=== PATIENT | female | born 1965 | race Caucasian/White ===

== ENCOUNTER 2019-02-20 20:54 | Emergency (ER) | payer BC ==
--- NOTE | 2019-02-20 21:09 | ER Document Report ---
ED Medical Screen (RME) - General Chief Complaint: Breathing Difficulty Stated Complaint: TROUBLE BREATHING Time Seen by Provider: 02/20/19 21:08 - [facility] Notes: 02/20/19 21:08 Patient is a 53-year-old female no significant past medical history who presents complaining of having lower substernal/epigastric pain that lasted for 30 minutes and was described as sharp and radiated around to her back and then resolved leaving her fatigued and "wiped." Patient states that the pain was worse when she would push in the area and she did have some shortness of breath at that time. No recent illness. Denies any prolonged immobilization, distance travel, recent surgery/trauma, personal cancer history, hormone use, smoking, or previous DVT/PE. Denies DOWLING, fever, neck pain, URI, n/v/d, dysuria, back pain, or rash. I have treated and performed a rapid initial assessment of this patient. A comprehensive ED assessment and evaluation of the patient, analysis of test results and completion of medical decision making process will be conducted by additional ED providers. PHYSICAL EXAMINATION: GENERAL: Well-appearing, well-nourished and in no acute distress. A&Ox4. Answers questions appropriately. LUNGS: Breath sounds clear to auscultation bilaterally and equal. No wheezes rales or rhonchi. HEART: Regular rate and rhythm without murmurs, rubs, gallops. Abdomen: Limited exam in triage, grossly nontender. Soft. Extremities: Trace pitting edema bilaterally. Cony negative bilaterally. No lower extremity asymmetry. NEUROLOGICAL: Normal speech, normal gait. PSYCH: Normal mood, normal affect.
--- NOTE | 2019-02-20 22:14 | RADIOLOGY REPORT (SQ) ---
EXAM DESCRIPTION: XR CHEST 1 VIEW COMPLETED DATE/TME: 02/20/2019 21:10 CLINICAL HISTORY: 53 years, Female, CP/epigastric pain COMPARISON: None. NUMBER OF VIEWS: 1 TECHNIQUE: Portable chest LIMITATIONS: None. FINDINGS: Heart size normal. Lungs clear. No pneumothorax IMPRESSION: Negative chest copyright 2010 [employer]- All Rights Reserved
[2019-02-20 22:46] LABS: ABSOLUTE BASOPHILS # (AUTO) 0.1 10^3/uL (0.0-0.2); ABSOLUTE EOSINOPHILS # (AUTO) 0.2 10^3/uL (0.0-0.6); ABSOLUTE LYMPHOCYTES (AUTO) 2.2 10^3/uL (0.5-4.7); ABSOLUTE MONOCYTES (AUTO) 0.8 10^3/uL (0.1-1.4); ABSOLUTE NEUT (AUTO) 6.7 10^3/uL (1.7-8.2); BASOPHILS % (AUTO) 0.6 % (0-2); EOSINOPHILS % (AUTO) 1.6 % (0-6); HEMATOCRIT 38.3 % (36.0-47.0); HEMOGLOBIN 13.1 g/dL (12.0-15.5); LYMPHOCYTES % (AUTO) 22.5 % (13-45); MEAN CORPUSCULAR HEMOGLOBIN 29.2 pg (27.0-33.4); MEAN CORPUSCULAR HGB CONC 34.3 g/dL (32.0-36.0); MEAN CORPUSCULAR VOLUME 85 fl (80-97); MONOCYTES % (AUTO) 7.9 % (3-13); PLATELET COUNT 233 10^3/uL (150-450); RED CELL DISTRIBUTION WIDTH 13.7 % (11.5-14.0); SEGMENTED NEUTROPHILS % (AUTO) 67.4 % (42-78); TOTAL CELLS COUNTED % (AUTO) 100 %
--- NOTE | 2019-02-20 22:51 | ER Document Report ---
ED General - General Mode of Arrival: Ambulatory Information source: Patient TRAVEL OUTSIDE OF THE [place] IN LAST 30 DAYS: No - HPI Onset: This evening Onset/Duration: Gone Quality of pain: Other - Clearance Severity: None - No pain at this time but it was a level 5 at the time of the pain Pain Level: Denies Associated symptoms: Chest pain - Epigastric, Shortness of breath, Other - States she was diaphoretic. denies: Nausea, Vomiting Exacerbated by: Supine, Walking, Other - Palpation Relieved by: Denies Similar symptoms previously: No Recently seen / treated by doctor: Yes - Related Data Home Medications: contrava <JAZZ RODRIGUEZ - Last Filed: 02/21/19 00:35> <ANSHUL HUANG - Last Filed: 02/21/19 02:12> - General Chief Complaint: Chest Pain Stated Complaint: TROUBLE BREATHING Time Seen by Provider: 02/20/19 21:08 Primary Care Provider: LENI HUANG MD [ACTIVE STAFF] - Follow up in 3-5 days DOE MUÑOZ MD [EMERITUS] - Follow up in 1 week Notes: 53-year-old female presented to ED for complaint of substernal/epigastric pain started around 8 PM. She states she had spaghetti and then within a half an hour lay down took a nap and when she woke up she had this tense pain in her e pigastric area that went through to her back. She states it did not go away for at least 30 minutes so she decided that she was coming to the hospital to have it evaluated. She states on the way here the pain was relieved. She states she was short of breath at the time of the pain. Pulse was 98 at the time of the pain she states she is not had any long distance travel any recent surgeries traumas history of cancer not smoke and has not had any previous DVTs or PEs. Have any cardiac history either. States she does not have any family history of cardiac problems. She does have a history of infrequent reflux. She did have an endoscopy about a year and a half ago that was negative. 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 Lives with: Family Family History: Reviewed & Not Pertinent Patient has suicidal ideation: No Patient has homicidal ideation: No - Past Medical History Cardiac Medical History: Reports: None Pulmonary Medical History: Reports: Hx Sleep Apnea EENT Medical History: Reports: None Neurological Medical History: Reports: Hx Migraine Endocrine Medical History: Reports: None Renal/ Medical History: Reports: None Malignancy Medical History: Reports: None GI Medical History: Reports: Hx Gastroesophageal Reflux Disease, Hx Colonoscopy, Hx Endoscopy Musculoskeletal Medical History: Reports None Skin Medical History: Reports None Psychiatric Medical History: Reports: Hx Depression Traumatic Medical History: Reports: None Infectious Medical History: Reports: None Past Surgical History: Reports: Hx Gynecologic Surgery - Uterine ablation, Hx Tubal Ligation - Immunizations Immunizations up to date: No Hx Diphtheria, Pertussis, Tetanus Vaccination: No History of Influenza Vaccine for 12/2018 - 05/2019 Season: Yes <JAZZ RODRIGUEZ - Last Filed: 02/21/19 00:35> Review of Systems - Review of Systems Constitutional: No symptoms reported EENT: No symptoms reported Cardiovascular: Chest pain Respiratory: Short of breath Gastrointestinal: No symptoms reported Genitourinary: No symptoms reported Female Genitourinary: No symptoms reported Musculoskeletal: No symptoms reported Skin: No symptoms reported Hematologic/Lymphatic: No symptoms reported Neurological/Psychological: Headaches -: Yes All other systems reviewed and negative <JAZZ RODRIGUEZ - Last Filed: 02/21/19 00:35> Physical Exam - Vital signs Interpretation: Normal - General General appearance: Appears well, Alert - HEENT Head: Normocephalic, Atraumatic Eyes: Normal Pupils: PERRL - Respiratory Respiratory status: No respiratory distress Chest status: Nontender Breath sounds: Normal Chest palpation: Normal - Cardiovascular Rhythm: Regular Heart sounds: Normal auscultation Murmur: No - Abdominal Inspection: Normal Distension: No distension Bowel sounds: Hyperactive Tenderness: Nontender Organomegaly: No organomegaly - Back Back: Normal, Nontender - Extremities General upper extremity: Normal inspection, Nontender, Normal color, Normal ROM, Normal temperature General lower extremity: Normal inspection, Nontender, Normal color, Normal ROM, Normal temperature, Normal weight bearing. No: Cony's sign - Neurological Neuro grossly intact: Yes Cognition: Normal Orientation: AAOx4 Carmelina Coma Scale Eye Opening: Spontaneous Selah Coma Scale Verbal: Oriented Sel[place] Coma Scale Motor: Obeys Commands Selah Coma Scale Total: 15 Speech: Normal Motor strength normal: LUE, RUE, LLE, RLE Sensory: Normal - Psychological Associated symptoms: Normal affect, Normal mood - Skin Skin Temperature: Warm Skin Moisture: Dry Skin Color: Normal <JAZZ RODRIGUEZ - Last Filed: 02/21/19 00:35> - Vital signs Vitals: Temp Pulse Resp BP Pulse Ox 97.8 F 92 18 151/77 H 98 02/20/19 21:09 02/20/19 21:09 02/20/19 21:09 02/20/19 21:09 02/20/19 21:09 Course - Laboratory Result Diagrams: 02/20/19 22:20 02/20/19 22:20 - Diagnostic Test Radiology reviewed: Image reviewed, Reports reviewed <JAZZ RODRIGUEZ - Last Filed: 02/21/19 00:35> - Laboratory Result Diagrams: 02/20/19 22:20 02/20/19 22:20 <ANSHUL HUANG - Last Filed: 02/21/19 02:12> - Re-evaluation Re-evalutation: 02/21/19 00:35 Patient is awaiting second troponin. Patient is pain-free and has been pain- free since my first exam. Patient is aware she is waiting for the second troponin and if she is still pain-free she will be charged home but if she has any elevation in the troponin or any chest pain she will be getting admitted. Patient has verbalized understanding with this plan. I have given report to Judson WELDON (JAZZ RODRIGUEZ) 02/21/19 02:12 Second troponin is negative. Discussed results with pt and pt's . Pt continues to remain chest pain free. Pt discharged home with return precautions. 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 All questions/concerns addressed prior to discharge. (ANSHUL HUANG) - Vital Signs Vital signs: Temp Pulse Resp BP Pulse Ox 97.8 F 92 16 137/82 H 97 02/20/19 21:09 02/20/19 21:09 02/21/19 01:01 02/21/19 01:01 02/21/19 01:01 Discharge <JAZZ RODRIGUEZ - Last Filed: 02/21/19 00:35> <ANSHUL HUANG - Last Filed: 02/21/19 02:12> - Discharge Clinical Impression: Chest pain Qualifiers: Chest pain type: unspecified Qualified Code(s): R07.9 - Chest pain, unspecified Condition: Stable Disposition: HOME, SELF-CARE Instructions: Chest Pain of Unclear Cause (OM) Additional Instructions: You were seen today for chest pain. The exact cause of your pain is unclear. However, based on your cardiac enzyme testing, chest x-ray, and EKG it does not appear that it is from an immediately life-threatening cause at this time. Although your testing here is normal is critical that you follow-up with your primary care physician for continued evaluation of this chest pain and possible stress testing. I recommended you see your physician within the next 24-48 hours to be evaluated for consideration of a stress test. Please return to emergency department immediately if you have worsening of your chest pain, shortness of breath, vomiting, become unable to exert yourself due to pain or difficulty breathing, you pass out, or have any pain that radiates into your arms, jaw, or back. Please also return if you have any additional symptoms that are concerning to you. Referrals: LENI HUANG MD [ACTIVE STAFF] - Follow up in 3-5 days DOE MUÑOZ MD [EMERITUS] - Follow up in 1 week
[2019-02-20] MEDS ORDERED: ASPIRIN 81 MG TABLET, CHEWABLE PO ONE (22:55)
[2019-02-20] MEDS ORDERED: ACETAMINOPHEN 325 MG TABLET PO ONE (22:55)
[2019-02-20 23:02] LABS: ALBUMIN 3.9 g/dL (3.5-5.0); ALKALINE PHOSPHATASE 101 U/L (38-126); ANION GAP 10 (5-19); ASPARTATE AMINO TRANSFERASE 36 U/L (14-36); BILIRUBIN,DIRECT 0.2 mg/dL (0.0-0.4); BILIRUBIN,TOTAL 0.4 mg/dL (0.2-1.3); BLOOD UREA NITROGEN 13 mg/dL (7-20); CALCIUM 9.4 mg/dL (8.4-10.2); CARBON DIOXIDE 27 mmol/L (22-30); CHLORIDE 101 mmol/L (98-107); GLUCOSE 109 mg/dL (75-110); POTASSIUM 4.1 mmol/L (3.6-5.0); TOTAL PROTEIN 6.9 g/dL (6.3-8.2)
[2019-02-21 02:34] VITALS: BP 136/74
--- NOTE | 2019-02-21 06:51 | EKG REPORT ---
SEVERITY:- NORMAL ECG - SINUS RHYTHM : Confirmed by: Titus Barbosa MD 21-Feb-2019 06:50:24
== END 2019-02-21 02:30 | disposition home or self-care (01) ==
LOC: EDBD → ER 20:54
DX: R07.2 Precordial pain (principal); R10.13 Epigastric pain; R06.02 Shortness of breath; R51 Headache; Z87.19 Personal history of other diseases of the digestive system; Z91.040 Latex allergy status
CPT/HCPCS: 36415; 71045; 80053; 83690; 84484; 85025; 93005; 93010; 99285

== ENCOUNTER → 2019-10-24 | Outpatient (CLI) | payer OTHER, BC ==
[2019-10-24 10:27] LABS: ALBUMIN 3.9 g/dL (3.5-5.0); ALKALINE PHOSPHATASE 93 U/L (38-126); ASPARTATE AMINO TRANSFERASE 26 U/L (14-36); BILIRUBIN,TOTAL 0.5 mg/dL (0.2-1.3); BLOOD UREA NITROGEN 11 mg/dL (7-20); CALCIUM 8.9 mg/dL (8.4-10.2); CARBON DIOXIDE 29 mmol/L (22-30); GLUCOSE 94 mg/dL (75-110); POTASSIUM 4.4 mmol/L (3.6-5.0); TOTAL PROTEIN 6.8 g/dL (6.3-8.2)
[2019-10-24 10:32] LABS: CHLORIDE 102 mmol/L (98-107)
[2019-10-24 10:36] LABS: ANION GAP 5 (5-19)
== END ==
LOC: OD 08:22
PROVIDERS: ATTEND Surgery
DX: K83.8 Other specified diseases of biliary tract (principal); K80.20 Calculus of gallbladder without cholecystitis without obstruction
CPT/HCPCS: 36415; 80053

== ENCOUNTER 2019-11-28 11:58 | Day surgery (SDC) | payer OTHER, BC ==
[2019-11-28] MEDS ORDERED: GLUCAGON,HUMAN RECOMB 1 MG INJ ONE (13:02)
[2019-11-28] MEDS ORDERED: EPINEPHRINE INJ 1 MG/10 ML DISP.SYRIN ONE (13:02)
[2019-11-28] MEDS ORDERED: LIDOCAINE 2% INJ-PF (20 MG/ML) 10 ML AMPUL ONE (13:33)
[2019-11-28] MEDS ORDERED: FENTANYL CITRATE INJ/PF 100 MCG/2 ML AMPUL ONE (13:33)
[2019-11-28] MEDS ORDERED: MIDAZOLAM 2 MG/2 ML INJ ONE (13:34)
[2019-11-28] MEDS ORDERED: PROPOFOL INJ 200 MG/20 ML VIAL IV ONE (13:34)
[2019-11-28] MEDS ORDERED: ONDANSETRON HCL INJ/PF 4 MG/2 ML SDV ONE (13:34)
[2019-11-28] MEDS ORDERED: DIPHENHYDRAMINE HCL 50 MG/ML VIAL IV PRN (14:45)
[2019-11-28] MEDS ORDERED: MEPERIDINE HCL/PF INJ 25 MG/1 ML DISP.SYRIN IV PRN (14:45)
[2019-11-28] MEDS ORDERED: PROMETHAZINE HCL INJ 25 MG/1 ML VIAL IV PRN ×2 (14:45)
[2019-11-28] MEDS ORDERED: FENTANYL CITRATE INJ/PF 100 MCG/2 ML AMPUL IV PRN ×3 (14:45)
--- NOTE | 2019-11-28 15:13 | Operative Report ---
Operative Report DATE OF SURGERY: 11/28/19 Operative Report: Pre-op diagnosis: Recurrent abdominal pain, gallstones and dilated biliary ducts Post-op diagnosis: 1. Common bile duct sludge 2. Normal pancreatic duct Surgery: ERCP with sphincterotomy and balloon sludge extraction Medications: As per anesthesia Tissue removed: None Procedure: After informed consent obtained from patient, patient was placed under general anesthesia. The ERCP endoscope was then inserted into the esophagus blindly and advanced into the stomach. The duodenum was entered and the ampulla was identified with a very small opening. Using the triple-lumen sphincterotomy catheter the common bile duct was freely cannulated. A cholan giogram was obtained . A good sized sphincterotomy was then performed using the endocut mode. The catheter was removed over the guidewire before a 12-15 mm balloon catheter was inserted. The balloon was inflated to 12 mm in the proximal common bile duct and pulled down the duct. The duct was swept two more times. A balloon occlusion cholangiogram was normal. Patient tolerated procedure well. Findings Common bile duct: Small amount of sludge was extracted Intrahepatic ducts: Normal Pancreatic duct: Partial pancreatogram was normal Plan: Refer for cholecystectomy OPERATION: .
--- NOTE | 2019-11-28 15:40 | RADIOLOGY REPORT (SQ) ---
EXAM DESCRIPTION: ENDO CATH BILI/PANCREATIC; NO CHG FLUORO IMAGES COMPLETED DATE/TIME: 11/28/2019 3:24 pm REASON FOR STUDY: ERCP IN OR R93.2 ABNORMAL FINDINGS ON DX IMAGING OF LIVER AND BILIARY T K80.20 C ALCULUS OF GALLBLADDER W/O CHOLECYSTITIS W/O OBSTRUC R10.13 EPIGASTRIC PAIN COMPARISON: None. FLUOROSCOPY TIME: 3.7 minutes. 12 images submitted to PACS. TECHNIQUE: Intra-operative images of the right upper quadrant were obtained in the endoscopy suite d uring an ERCP. NUMBER OF IMAGES: 12 LIMITATIONS: None. FINDINGS: Refer to the separate procedure report. IMPRESSION: IMAGE(S) OBTAINED DURING PROCEDURE. COMMENT: Quality ID 145: Final reports for procedures using fluoroscopy that document radiation exp osure indices, or exposure time and number of fluorographic images (if radiation exposure indices are not available) Please consult full operative report of the attending physician for description of the procedure. TECHNICAL DOCUMENTATION: JOB ID: [id number] 2010 [employer]- All Rights Reserved Reading location - IP/workstation name: [email or web address]
--- NOTE | 2019-11-28 15:40 | RADIOLOGY REPORT (SQ) ---
EXAM DESCRIPTION: ENDO CATH BILI/PANCREATIC; NO CHG FLUORO IMAGES COMPLETED DATE/TIME: 11/28/2019 3:24 pm REASON FOR STUDY: ERCP IN OR R93.2 ABNORMAL FINDINGS ON DX IMAGING OF LIVER AND BILIARY T K80.20 C ALCULUS OF GALLBLADDER W/O CHOLECYSTITIS W/O OBSTRUC R10.13 EPIGASTRIC PAIN COMPARISON: None. FLUOROSCOPY TIME: 3.7 minutes. 12 images submitted to PACS. TECHNIQUE: Intra-operative images of the right upper quadrant were obtained in the endoscopy suite d uring an ERCP. NUMBER OF IMAGES: 12 LIMITATIONS: None. FINDINGS: Refer to the separate procedure report. IMPRESSION: IMAGE(S) OBTAINED DURING PROCEDURE. COMMENT: Quality ID 145: Final reports for procedures using fluoroscopy that document radiation exp osure indices, or exposure time and number of fluorographic images (if radiation exposure indices are not available) Please consult full operative report of the attending physician for description of the procedure. TECHNICAL DOCUMENTATION: JOB ID: [id number] 2010 [employer]- All Rights Reserved Reading location - IP/workstation name: [email or web address]
[2019-11-28 16:48] VITALS: BP 151/84
== END 2019-11-28 16:35 | disposition home or self-care (01) ==
LOC: OROUT 11:58
PROVIDERS: ATTEND Internal Medicine Gastroenterology
DX: K83.9 Disease of biliary tract, unspecified (principal); E66.9 Obesity, unspecified; Z79.899 Other long term (current) drug therapy; Z98.51 Tubal ligation status; Z80.0 Family history of malignant neoplasm of digestive organs; Z03.818 Encounter for observation for suspected exposure to other biological agents ruled out
CPT/HCPCS: 43277; 43264; 43262; 74330; 00732; Q9967; U0003; J3010; J2405; J2704; J3490; C9803; 732; 87635; J0171; J1610; J2250

== ENCOUNTER 2019-12-26 10:59 | Day surgery (SDC) | payer OTHER, BC ==
[2019-12-23 12:48] LABS: HEMATOCRIT 39.9 % (36.0-47.0); HEMOGLOBIN 13.6 g/dL (12.0-15.5); MEAN CORPUSCULAR HEMOGLOBIN 28.5 pg (27.0-33.4); MEAN CORPUSCULAR HGB CONC 34.2 g/dL (32.0-36.0); MEAN CORPUSCULAR VOLUME 83 fl (80-97); PLATELET COUNT 233 10^3/uL (150-450); RED BLOOD COUNT 4.79 10^6/uL (3.72-5.28); RED CELL DISTRIBUTION WIDTH 13.7 % (11.5-14.0); WHITE BLOOD COUNT 7.7 10^3/uL (4.0-10.5)
[2019-12-23 13:12] LABS: ALKALINE PHOSPHATASE 75 U/L (38-126); ANION GAP 10 (5-19); ASPARTATE AMINO TRANSFERASE 25 U/L (14-36); BILIRUBIN,DIRECT 0.2 mg/dL (0.0-0.4); BILIRUBIN,TOTAL 0.4 mg/dL (0.2-1.3); BLOOD UREA NITROGEN 14 mg/dL (7-20); CALCIUM 9.7 mg/dL (8.4-10.2); CARBON DIOXIDE 24 mmol/L (22-30); CHLORIDE 103 mmol/L (98-107); GLUCOSE 83 mg/dL (75-110); POTASSIUM 4.6 mmol/L (3.6-5.0); TOTAL PROTEIN 6.8 g/dL (6.3-8.2)
--- NOTE | 2019-12-23 14:27 | RADIOLOGY REPORT (SQ) ---
EXAM DESCRIPTION: CHEST PA/LATERAL IMAGES COMPLETED DATE/TIME: 12/23/2019 2:18 pm REASON FOR STUDY: PRE-OP COMPARISON: 02/20/2019 EXAM PARAMETERS: NUMBER OF VIEWS: two views TECHNIQUE: Digital Frontal and Lateral radiographic views of the chest acquired. RADIATION DOSE: NA LIMITATIONS: none FINDINGS: LUNGS AND PLEURA: No opacities, masses or pneumothorax. No pleural effusion. MEDIASTINUM AND HILAR STRUCTURES: No masses or contour abnormalities. HEART AND VASCULAR STRUCTURES: Heart normal size. No evidence for failure. BONES: No acute findings. HARDWARE: None in the chest. OTHER: No other significant finding. IMPRESSION: NO SIGNIFICANT RADIOGRAPHIC FINDING IN THE CHEST. TECHNICAL DOCUMENTATION: JOB ID: [id number] 2010 [employer]- All Rights Reserved Reading location - IP/workstation name: [email or web address]
--- NOTE | 2019-12-23 19:53 | EKG REPORT ---
SEVERITY:- NORMAL ECG - SINUS RHYTHM : Confirmed by: Nano Martínez 23-Dec-2019 19:52:33
[~2019-12-26 10:59] MED LIST: ACETAMINOPHEN 325 MG TABLET PO PRN; CEFOXITIN SODIUM 2 GM in DEXTROSE 5%-WATER 100 ML IV PRN; IBUPROFEN 800 MG in NORMAL SALINE 250 ML IV PRN; LACTATED RINGERS 1000 ML IV PRN
[2019-12-26] MEDS ORDERED: ACETAMINOPHEN 325 MG TABLET ONE (11:14)
[2019-12-26] MEDS ORDERED: SUCCINYLCHOLINE CHLORIDE INJ 200 MG/10 ML VIAL ONE (12:14)
[2019-12-26] MEDS ORDERED: LIDOCAINE 2% INJ-PF (20 MG/ML) 2 ML AMPUL ONE (12:14)
[2019-12-26] MEDS ORDERED: ONDANSETRON HCL INJ/PF 4 MG/2 ML SDV ONE (12:14)
[2019-12-26] MEDS ORDERED: ROCURONIUM BROMIDE INJ 50 MG/5 ML VIAL IV ONE (12:14)
[2019-12-26] MEDS ORDERED: GLYCOPYRROLATE 1 MG/5 ML VIAL ONE (12:14)
[2019-12-26] MEDS ORDERED: DEXAMETHASONE SOD PHOSPHATE INJ 4 MG/1 ML VIAL ONE (12:14)
[2019-12-26] MEDS ORDERED: NEOSTIGMINE METHYLSULFATE 10 MG/10 ML VIAL ONE (12:14)
[2019-12-26] MEDS ORDERED: SUGAMMADEX SODIUM 200 MG/2 ML SDV IV ONE (12:25)
[2019-12-26] MEDS ORDERED: MORPHINE SULFATE 10 MG/ML INJ ONE ×2 (12:25→14:15)
[2019-12-26] MEDS ORDERED: MIDAZOLAM 2 MG/2 ML INJ ONE (12:25)
[2019-12-26] MEDS ORDERED: FENTANYL CITRATE INJ/PF 100 MCG/2 ML AMPUL ONE (12:25)
[2019-12-26] MEDS ORDERED: PROPOFOL INJ 200 MG/20 ML VIAL IV ONE (12:25)
[2019-12-26] MEDS ORDERED: BUPIVACAINE HCL 0.25 % INJ/PF (2.5 MG/1 ML) 30 ML VIAL ONE (12:29)
[2019-12-26] MEDS ORDERED: FENTANYL CITRATE INJ/PF 100 MCG/2 ML AMPUL IV PRN ×3 (13:18)
[2019-12-26] MEDS ORDERED: MORPHINE SULFATE 10 MG/ML INJ IV PRN (13:18)
[2019-12-26] MEDS ORDERED: DIPHENHYDRAMINE HCL 50 MG/ML VIAL IV PRN (13:18)
[2019-12-26] MEDS ORDERED: PROMETHAZINE HCL INJ 25 MG/1 ML VIAL IV PRN (13:18)
[2019-12-26] MEDS ORDERED: OXYCODONE-ACETAMINOPHEN 5-325 MG TABLET PO PRN ×2 (13:18)
[2019-12-26] MEDS ORDERED: MEPERIDINE HCL/PF INJ 25 MG/1 ML DISP.SYRIN IV PRN (13:18)
[2019-12-26] MEDS ORDERED: ONDANSETRON HCL INJ/PF 4 MG/2 ML SDV IV PRN (13:18)
--- NOTE | 2019-12-26 14:08 | Discharge Summary ---
Discharge Summary (SDC) - Discharge Final Diagnosis: symptomatic gallstones Date of Surgery: 12/26/19 Discharge Date: 12/26/19 Condition: Stable Treatment or Instructions: Discharge home. Diet as tolerated. Activity: No lifting greater than 10 pounds x 2 weeks. Follow-up with [facility] in 7 to 10 days. Wheeler 10/325 mg p.o. every 6 hours as needed for pain. Okay to shower on Sunday. No tub baths or swimming pools x2 weeks. Prescriptions: Hydrocodone/Acetaminophen [Wheeler 10-325 mg Tablet] 1 tab PO Q6HP PRN #14 tablet PRN Reason: For Pain Referrals: ARNAUD OSORIO PA-C [Primary Care Provider] - Discharge Diet: As Tolerated Respiratory Treatments at Home: Deep Breathing/Coughing, Incentive Spirometer Discharge Activity: No Lifting Over 10 Pounds, No Lifting/Push/Pulling Home Care Assistance: None Needed Report the Following to Your Physician Immediately: Shortness of Breath, Nausea, Vomiting, Increase in Pain, Yellow Skin, Fever over 101 Degrees, Unusual Bleeding, Redness
--- NOTE | 2019-12-26 14:15 | Operative Report ---
Nonrecallable Operative Report DATE OF SURGERY: 12/26/19 PREOPERATIVE DIAGNOSIS: Symptomatic gallstones POSTOPERATIVE DIAGNOSIS: Same as above OPERATION: Laparoscopic cholecystectomy SURGEON: AUGUSTUS BURNETT 1ST [employer]: KINA RAMIREZ ANESTHESIA: GA TISSUE REMOVED OR ALTERED: Gallbladder COMPLICATIONS: None apparent ESTIMATED BLOOD LOSS: Minimal PROCEDURE: Drains/implants: None. Procedure in detail: After informed consent was obtained, the patient was brought into the operating room and laid in the supine position. The area of the abdomen was prepped and draped in a normal sterile fashion. An infraumbilical incision was created within the bounds of a previous scar. Dissection was carried through the subcutaneous tissues using sharp and blunt dissection. The cicatrix was identified, grasped with a Jeff clamp, and retracted upwards. The linea alba fascia was incised sharply, the abdomen was entered sharply. The balloon trocar was inserted, and pneumoperitoneum was achieved. A subxiphoid 5 mm port was then placed under direct laparoscopic visualization. 2 more 5 mm ports were placed in the right upper quadrant in similar fashion. Atraumatic graspers were placed through the 5 mm ports. The gallbladder was retracted cephalad and laterally. Dissection was begun in the triangle of Calot. The cystic duct and cystic artery were fully visualized and skeletonized, seeing the liver through the triangle. Once the critical view of safety was obtained, the cystic artery were clipped and cut with laparoscopic instruments. The cystic duct appeared dilated, and it was felt necessary to use a PDS Endoloop to secure the cystic duct. The gallbladder was then removed from the liver using Bovie electrocautery. An Endoloop was then placed around the gallbladder, and situated at the infundibulum/cystic duct junction. The remainder of the gallbladder was amputated, leaving the PDS Endoloop in place. The gallbladder was placed into an Endo Catch bag and pulled out through the umbilicus. The abdomen was copiously irrigated and suctioned, until the effluent was clear. The hilum was then inspected. It was found to be free of any leakage of blood or bile. Once this was confirmed, the 5 mm trochars were removed under direct laparoscopic visualization. The infraumbilical trocar was removed, and pneumoperitoneum was relieved. The infraumbilical fascia was closed using 0 Vicryl suture in [id number] fashion. The overlying skin was closed using 4-0 Vicryl Rapide suture in subcuticular fashion. Dressings were placed, and the procedure was concluded. All sponge, instrument, and needle counts were correct x2. Condition: Stable. Kina Ramirez PA-C was scrubbed and present the entirety of the procedure. She assisted with all portions of the procedure including placement of the trochars, manipulation of the gallbladder, removal of the gallbladder, closure of the fascia, and closure of the skin.
[2019-12-26 17:50] VITALS: BP 123/63
== END 2019-12-26 16:00 | disposition home or self-care (01) ==
LOC: OROUT 10:59
PROVIDERS: ATTEND Surgery
DX: K80.12 Calculus of gallbladder with acute and chronic cholecystitis without obstruction (principal); Z03.818 Encounter for observation for suspected exposure to other biological agents ruled out; Z86.69 Personal history of other diseases of the nervous system and sense organs; E66.9 Obesity, unspecified; Z80.0 Family history of malignant neoplasm of digestive organs; Z98.51 Tubal ligation status; Z98.890 Other specified postprocedural states; Z79.899 Other long term (current) drug therapy
CPT/HCPCS: 47562; 93005; 36415; 85027; 80053; 88304 ×2; 71046; 93010; U0003; J2250; J3010; J2270; J7060; J7050; J2704; J1741; J3490; J0694; C9803; 790; 87635; J0330; J1100; J2405; J2710